=== PATIENT | male | born 1990 | race Hispanic/Latino ===

== ENCOUNTER 2019-08-11 11:13 | Day surgery (SDC) | payer OTHER, SELFPAY ==
[2019-08-11 11:40] VITALS: BP 115/69; PULSE 62; RESP 16; TEMP 36.8; O2SAT 100; BMI 23.6
[2019-08-11] MEDS: Lactated Ringers 1,000 ML 100 ML IV (12:03)
[2019-08-11] MEDS: Cefazolin 2 GM in 0.9% Normal Saline 100 ML IV (12:39)
[2019-08-11] MEDS: Epinephrine (1 mg/ml) 1 MG/ML VIAL (13:03)
[2019-08-11] MEDS: Bupivacaine Mpf 0.5% 30 ML VIAL (13:15)
[2019-08-11 14:36] VITALS: BP 115/69; BP 137/80; PULSE 69; RESP 16; TEMP 36.2; O2SAT 100
[2019-08-11 14:40] VITALS: BP 115/69; BP 127/80; PULSE 84; RESP 16; O2SAT 100
[2019-08-11 14:45] VITALS: BP 115/69; BP 135/92; PULSE 88; RESP 16; O2SAT 100
[2019-08-11 15:01] VITALS: BP 115/69; BP 133/82; PULSE 78; RESP 16; TEMP 36.1; O2SAT 99
--- NOTE | 2019-08-11 15:21 | PCM.OPRPT ---
Report of Operation Date of Procedure: 08/11/19 Pre-Operative Diagnosis: Left knee ACL and medial and lateral meniscal tears Post-Operative Diagnosis: same Surgery/Procedure Performed:: L knee ACL reconstruction with partial medial and lateral meniscectomies hand ii blocker: Abhinav Stone Type of Anesthesia:: General/Regional Anesthesiologist: Tanvir Castellon Estimated Blood Loss (mL): 15 cc - Admit VTE Documentation VTE Present on Admission: No VTE Mechan Device Prophylaxis: SCD's, Thigh High ADRIANA Hose VTE Pharm Prophylaxis ordered?: Yes
[2019-08-11 15:52] VITALS: BP 115/69
== END 2019-08-11 15:53 | disposition home or self-care (01) ==
LOC: SDC 11:14 → AC 11:16
PROVIDERS: Family Provider Nurse Practitioner Primary Care; PCP Nurse Practitioner Primary Care; Referring Provider Orthopaedic Surgery; Visit Provider Orthopaedic Surgery
PROC: (CPT 29888; principal; 2019-08-11 12:25)
DX: S83.512A Sprain of anterior cruciate ligament of left knee, initial encounter (principal); S83.242A Other tear of medial meniscus, current injury, left knee, initial encounter; S83.282A Other tear of lateral meniscus, current injury, left knee, initial encounter; X58.XXXA Exposure to other specified factors, initial encounter; Y93.66 Activity, soccer; Y92.9 Unspecified place or not applicable; Y99.8 Other external cause status
CPT/HCPCS: 29880; 29888; 64447; J7120; J2310; J2405